=== PATIENT | female | born 1940 | race Caucasian/White ===

== ENCOUNTER → 2017-06-15 | Outpatient (CLI) | payer OTHER ==
[~2017-06-15] VITALS: Ht 172.7 cm; Wt 61.2 kg
[~2017-06-15] MED LIST: AMBIEN 5 MG TABL5 M1 PO; CARVEDILOL12.5 MG PO; CARVEDILOL3.125 MG PO; COREG6.25 MG PO; CREON 10 CAPSUL1 CA1 PO; CYMBALTA20 MG PO; FENTANYL PA12 MCG/HR TP; FLORINEF ACETA0.1 MG PO; GABAPENTIN100 MG PO; MIRALAX17 GM PO; TRAMADOL 50 MG50 MG PO; UNICOMPLEX M TA1 TA1 PO; VITAMIN D2000 UNIT PO; XANAX1 MG PO
--- NOTE | ~2017-06-15 | HPC ---
[facility] [address] PAIN MANAGEMENT CONSULTATION Name: JAVIER GRIFFIN Room #: REG KAREN Mary.#: [id number] Admission: 06/15/17 Attend Phys: Femi Ramirez MD Discharge: Date of : 40 Report #: [id number] THIS REPORT FOR: //name// CC: Randee Ramirez DATE OF SERVICE: 06/15/2017 DATE OF SERVICE: 06/15/2017 Followup visit for chronic intractable pain with multiple pain generators. The patient is to here today with her . She describes once again multiple aches and pains. She has back pain, wrist pain, bilateral elbow pain with arthritis. She has multiple myofascial pains and tenderness. I am providing her medication to ease these symptoms. She has had multiple trials of non opioid medications and currently we have settled on a regimen, which includes tramadol, Zoloft 50 mg at bedtime. She is not currently on a nonsteroidal anti-inflammatory drug and I have recommended Meloxicam 7.5 mg 1 tablet daily and Prilosec 20 mg daily. This will be new medication for her. Side effects of nonsteroidal anti-inflammatories reviewed in detail. PHYSICAL EXAMINATION: She is anxious, blood pressure 136/92, heart rate 87. She has multiple myofascial tender points. She has multiple joint tenderness consistent with osteoarthritis. She has range of motion related pain in wrist, elbows and shoulders. She has tenderness throughout spine with spondylosis. She has pain in her knees, ankles and hip. She claims her hands are swollen, but I do not see it. IMPRESSION: 1. Chronic intractable osteoarthritis and myofascial pain consistent with fibromyalgia. 2. Management of high risk medications. PLAN: 25 minutes counseling. Medications were written for polypharmacy treatments with review of side effects of each medication including Meloxicam, Zoloft and tramadol. Followup visit is planned. It should be noted that her dose of tramadol will be small and I feel that serotonin effects of the SSRI and tramadol would be reasonable, but we will follow closely. By: [id number] Femi Ramirez MD /nt
[2017-06-15 14:17] VITALS: BP 136/92
== END ==
LOC: PAIN 07:10
DX: M79.1 Myalgia (principal)

== ENCOUNTER → 2017-10-18 | Outpatient (CLI) | payer OTHER, BC ==
[~2017-10-18] VITALS: Ht 167.6 cm; Wt 61.5 kg
[~2017-10-18] MED LIST changes: +ALPRAZOLAM 0.50.5 M1 PO; +ELIQUIS5 MG PO; +HYDROCODONE-AP1 EAC6 PO; +MELATONIN5 M1 PO; +OMEPRAZOLE 20 M20 M1 PO; +SYNTHROID25 MC1 PO
--- NOTE | ~2017-10-18 | HPC ---
[facility] [address] [address] PAIN MANAGEMENT CONSULTATION Name: JAVIER GRIFFIN Room #: REG KAREN Albino#: [id number] Admission: 10/18/17 Attend Phys: Sarai Nelson MD Discharge: Date of : 40 Report #: [id number] THIS REPORT FOR: //name// CC: Randee Nelson DATE OF SERVICE: 10/18/2017 FOLLOWUP HISTORY: The patient is a 77-year-old female who has been seen by Dr. Femi Ramirez in the pain clinic for chronic pain. She states that she has pain secondary to lumbar radicular discomfort as well as fibromyalgia, which she has had for a number of years. She suffers from depression and anxiety. She indicates that Dr. Ramirez had changed her Ambien to Xanax. She feels that medication is helping with her sleep and has been somewhat helpful in decreasing her anxiety. She has had no complication with its use. She feels that her pain still is problematic. She feels that the change in her tramadol medication might be beneficial. She continues to have pain in her back. She states that she has some significant amount of curvature in her back and in the thoracic area as well. She continues to wear her elastic binder in the lower portion of her back. She would like to have her medications renewed today. ALLERGIES: PENICILLIN, SULFA, BACTRIM, CLARITHROMYCIN. CURRENT MEDICATIONS: Omeprazole 20 mg, Eliquis 5 mg, alprazolam 0.5 mg, tramadol 50 mg b.i.d., Coreg 12.5 mg, iron complex, Florinef 0.1 mg tablet, vitamin D, Creon capsule. PHYSICAL EXAMINATION: HEENT: Eye muscles intact. Nonicteric. Head, atraumatic. NECK: No JVD. Good range of motion. BACK: The patient has a binder in place. Note is made of some scoliosis. EXTREMITIES: The patient complains of some pain in her hands, has changes consistent with arthritis involving her fingers with some rheumatoid changes noted. MENTAL STATUS: The patient states that she feels somewhat depressed because of her chronic condition. Does not appear or speak to being suicidal. Her son is present. IMPRESSION: 1. Chronic intractable osteoarthritis and myofascial pain consistent with fibromyalgia. 2. Low back pain with curvature, scoliosis, neural foraminal narrowing and lumbar radiculopathy history, involving the L3-L4 distribution. 3. Management of high risk medications. [address] [address] PAIN MANAGEMENT CONSULTATION Name: JAVIER GRIFFIN Room #: REG CLI Albino#: [id number] Admission: 10/18/17 Attend Phys: Sarai Nelson MD Discharge: Date of : 40 Report #: [id number] RECOMMENDATION: 1. The patient felt that the change in her medications from Ambien to Xanax has been positive. She feels that this medication continues to be helpful. She would like to consider a change in her tramadol. At this juncture, we will let her follow up with Dr. Ramirez and they can decide what would be a reasonable option at that juncture in about one month. 2. Hypertension 3. Congestive heart failure -- atrial fibrillation. The patient continues to take Eliquis. States that she has been in fibrillation for about one month. Has not undergone cardioversion. She might consider that in the future. 4. Osteoporosis. 5. Obstructive sleep apnea. 6. Depression. We would like to thank you for letting us participate in her care. We hope she continues to improve. <ELECTRONICALLY SIGNED> By: Sarai Nelson MD 11/10/17 1332 [id number] [id number] Sarai Nelson MD /[facility]
[2017-10-18 10:49] VITALS: BP 134/89
== END ==
LOC: PAIN 07:00
DX: M48.061 Spinal stenosis, lumbar region without neurogenic claudication (principal); M54.16 Radiculopathy, lumbar region; M79.7 Fibromyalgia; F41.9 Anxiety disorder, unspecified; F32.9 Major depressive disorder, single episode, unspecified; M41.86 Other forms of scoliosis, lumbar region; Z79.899 Other long term (current) drug therapy

== ENCOUNTER → 2017-11-13 | Outpatient (CLI) | payer OTHER, BC ==
[~2017-11-13] VITALS: Ht 160 cm; Wt 63.0 kg
--- NOTE | ~2017-11-13 | CRIT ---
[facility] [place] [address] CRITICAL CARE NOTE Name: JAVIER GRIFFIN Room #: REG KAREN Hernandez.#: [id number] Admission: 11/13/17 Attend Phys: Femi Ramirez MD Discharge: Date of : 40 Report #: [id number] THIS REPORT FOR: //name// CC: Randee Ramirez DATE OF SERVICE: 11/13/[address] Steinberg. Followup visit for chronic osteoarthritis and myofascial pain. This is a followup visit for the patient who was last seen by my partner, Dr. Sebastián Nelson, 3 weeks ago. She is here today to discuss further suggestions. I spent roughly 25 minutes with her today discussing her pain, her medications, clarifying their use and dosing and offering additional suggestions for pain. She has previously been a patient of Dr. Gabo Alejandro. She is now with Dr. Steinberg. Some of the medications that were provided through Dr. Alejandro' office are no longer being provided by her new practitioner. I told her today, I would assist with medications that are involved with pain and affect. She has been a longstanding utilizer of sleeping aids as well as an anxiolytic. Her pain today is described diffusely as bilateral knees, low back, shoulders, ankle and hips. She has osteoarthritis. Her intensity is 8/10. The pain is aching and throbbing. It is generally worse on rising and is exacerbated by prolonged sitting. She also notices that walking aggravates her pain and this has made her more sedentary. She reports that her medication for the most part has been working pretty well, but the tramadol has lost some of its efficacy. She has taken in the past hydrocodone and is interested in transitioning or rotating to a mild low dose hydrocodone. We spent a great deal of time today discussing the dosing as she was confused about the Tylenol component. I think we clarified that her previous dose, which was effective was hydrocodone 5/325 and she will continue on that at today's discharge. Medicare PQRS review was performed. She does have a history of osteoarthritis as described above. Her BMI is 24.6 and she is not obese and eats adequately. PHYSICAL EXAMINATION: VITAL SIGNS: Blood pressure 136/91, heart rate 69. Pain intensity 8. She is not a fall risk and has not fallen in the last 3 months, but does feel that she gets dizzy when her blood pressure is elevated. She is on blood thinner, Eliquis, and is not a candidate for injection therapy today. She is only on tramadol, which has very mild opioid effects and we have not had her sign an [address] [place] [address] CRITICAL CARE NOTE Name: JAVIER GRIFFIN Mirna Room #: REG [facility] Albnio#: [id number] Admission: 11/13/17 Attend Phys: Femi Ramirez MD Discharge: Date of : 40 Report #: [id number] opioid agreement prior to today's visit. She does not smoke. Her risk assessment tool shows that she has a very low risk for addiction. Her affect is anxious and depressed. She has diffuse tenderness of multiple joints described above. She is able to move independently from a sitting to standing position and ambulate with mild antalgic features. IMPRESSION: 1. Chronic intractable osteoarthritis and myofascial pain. 2. Management of high risk medication. 3. Anxiety, depression. 4. History of insomnia. 5. Congestive heart failure with atrial fibrillation, on Coumadin. 6. Osteoporosis. PLAN: We will rotate the hydrocodone 5/325 three times daily, which is a total of 15 morphine milligram equivalents per day. An opioid agreement was signed and a baseline buccal drug screen performed. A followup visit is scheduled for her in 3 months. We will evaluate her opioid use at that time. I did agree to provide her with Xanax 0.5 mg, a very small dose that she has used chronically and should be safe with her small dose of hydrocodone. She has used them in conjunction previously. She will use this exclusively at night for sleep. <ELECTRONICALLY SIGNED> By: Femi Ramirez MD 12/06/17 1640 14 0218 Femi Ramirez MD /nt
[2017-11-13 12:54] VITALS: BP 136/91
== END ==
LOC: PAIN 07:04
DX: M19.072 Primary osteoarthritis, left ankle and foot (principal); M19.071 Primary osteoarthritis, right ankle and foot; M16.0 Bilateral primary osteoarthritis of hip; M19.012 Primary osteoarthritis, left shoulder; M19.011 Primary osteoarthritis, right shoulder; M17.0 Bilateral primary osteoarthritis of knee; M79.1 Myalgia; F41.9 Anxiety disorder, unspecified; F32.9 Major depressive disorder, single episode, unspecified; I50.9 Heart failure, unspecified; I48.91 Unspecified atrial fibrillation; M81.0 Age-related osteoporosis without current pathological fracture; Z79.01 Long term (current) use of anticoagulants; Z79.899 Other long term (current) drug therapy

== ENCOUNTER → 2018-04-30 | Outpatient (CLI) | payer OTHER, BC ==
[~2018-04-30] VITALS: Ht 160 cm; Wt 64.9 kg
--- NOTE | ~2018-04-30 | HPC ---
[facility] [address] [place] [address] PAIN MANAGEMENT CONSULTATION Name: JAVIER GRIFFIN Room #: REG KAREN Albino#: [id number] Admission: 04/30/18 Attend Phys: Femi Ramirez MD Discharge: Date of : 40 Report #: [id number] THIS REPORT FOR: //name// CC: Ashleybrittany Ramirez DATE OF SERVICE: 04/30/2018 Followup visit for management of chronic pain, osteoarthritis and myofascial pain. The patient returns to pain clinic today in followup. She has been a patient of our clinic now for several years. We provide her with a pain medication to improve day-to-day function. She reports that tramadol is more effective than her trial of hydrocodone. Her maximum daily use is two tablets twice a day for a total of 200 mg. She denies side effects. She is grateful for the pain relief and the improvement that it gives her day to day. She still has trouble sleeping, reports that she can only sleep about 2 hours at night. I had provided alprazolam for her in the past, which was the most helpful. She has tried other sleeping tablets including Belsomra, a long time use of Ambien, and she has tried melatonin high dose with limited success. I have agreed to provide her with alprazolam 0.5 mg to be used at bedtime. She has used this in combination with tramadol effectively without significant over sedation. Today, pain is once again in bilateral knees and hips. She has pain in her shoulders and also in her low back. Most of this is related to diffuse osteoarthritis. She describes it as a throbbing pain. It is worse with activities. She scores it as a 4 while sitting in our office today. PQRS shows that she does have a widespread history of osteoporosis. Her height is 5 feet 3 inches, weight 143 with a BMI of 25.3. She denies use of tobacco or alcohol. She has signed an opioid agreement for her use of pain medication, now just tramadol which we called in. She is not on hypertensive medication, but she does take a blood thinner Eliquis for atrial fibrillation. IMPRESSION: 1. Chronic osteoarthritis and myofascial pain. 2. Management of high risk medications. 3. History of anxiety, depression and insomnia. 4. Congestive heart failure with atrial fibrillation, now on Eliquis, off Coumadin. 5. Osteoporosis. [facility] [address] [place] [address] PAIN MANAGEMENT CONSULTATION Name: JAVIER GRIFFIN Room #: REG ANDRIAAdeline Posada#: [id number] Admission: 04/30/18 Attend Phys: Femi Ramirez MD Discharge: Date of : 40 Report #: [id number] PLAN: I renewed her tramadol 50 mg q.i.d. or 2 tablets b.i.d. and alprazolam 0.5 mg at bedtime. Followup visit planned in 3 months. <ELECTRONICALLY SIGNED> By: Femi Ramirez MD 05/02/18 1622 1223 [id number] Femi Ramirez MD /jan
[2018-04-30 10:31] VITALS: BP 116/74
== END ==
LOC: PAIN 06:25
DX: M19.90 Unspecified osteoarthritis, unspecified site (principal); M79.1 Myalgia; G89.29 Other chronic pain; M81.0 Age-related osteoporosis without current pathological fracture; I50.9 Heart failure, unspecified; I48.91 Unspecified atrial fibrillation; Z79.899 Other long term (current) drug therapy

== ENCOUNTER → 2018-10-05 | Outpatient (CLI) | payer OTHER, BC ==
[~2018-10-05] VITALS: Ht 160 cm; Wt 66.4 kg
[~2018-10-05] MED LIST changes: +ALPRAZOLAM 0.0.25 MG PO; +ASPERCREME 1141.7 GM TOP; +BIOTIN2500 MCG PO; +CALCIUM 600 +1 EAC8 PO; +GLUCOTEN CAPLE1 EACH PO; +HYDROCODON-ACE1 EAC7 PO; +IBUPROFEN 200200 M1 PO; +LASIX 40 MG TAB40 M2 PO; +MAGNESIUM500 MG PO; +NEPHROCAPS SOFT1 CAP PO; +NORCO 5-325 TA1 EACH PO; +OMEGA-31000 M1 PO; +STOOL SOFT-STI1 EACH PO; +VITAMIN C250 MG PO
[2018-10-05 13:10] VITALS: BP 120/79
--- NOTE | 2018-10-05 13:19 | NUR ---
Pain Clinic Assessment: 1. History of Osteoarthritis: YES History of Rheumatoid Arthritis: NONE 2. Height: 5 ft. 3 in. 160.0 cm. Weight: 146.4 lb. oz. 66.407 kg. Patient's BMI: 25.9 3. Vital Signs: BP: 120/79 Pulse: 73 Resp: 16 Temp: 02 Sat: 97 ECG Mon: 4. Pain Intensity: 6 5. Fall Risk: Dizziness: N Needs help standing or walking: N Fallen in the last 3 months: N Fall risk comments: 6. Patient on Blood Thinner: carla 7. History of Hypertension: N 8. Opioid Therapy greater than 6 weeks: N Opiate Contract Signed: 9. Risk Assessment Tool Provided: 0-low riak 10. Functional Assessment Tool: 11. Recreational Drug Use: Never Drug Type: Tobacco Use: Never Smoker Tobacco Type: Amount or Packs/day: How Many Years: Alcohol Use: No Frequency: Quant:
--- NOTE | 2018-10-10 11:18 | HPC ---
[facility] [place] [address] PAIN MANAGEMENT CONSULTATION Name: JAVIER GRIFFIN Room #: REG KAREN Albino#: [id number] Admission: 10/05/18 Attend Phys: Femi Ramirez MD Discharge: Date of : 40 Report #: [id number] THIS REPORT FOR: //name// CC: Ashley James DATE OF SERVICE: 10/05/2018 CHIEF COMPLAINT: Chronic pain, osteoarthritis and myofascial pain. The patient returns to pain clinic today for her ongoing chronic pain. She remains on medication, which she reports is quite helpful. She has no significant side effects. She safeguards her medication carefully under terms of written opioid agreement. She scores her pain as a 6/10. Pain is mostly in her low back and radiates into both legs in a dermatomal distribution. Today, we discussed the possibility of an epidural injection, which has been some years before she has trialed. She is comfortable with the tramadol that seems to help, but has trouble sleeping at night. She has used alprazolam in the past, but says the pharmacist makes her seem like a druggy. Pharmacist also forced her into getting a Narcan spray because of her use of tramadol and a small dose of alprazolam. She has used hydrocodone in the past, but seems to do just fine with the tramadol. She understands that she developed some tolerance to these medications. On episodes where the pain is more severe and she has trouble with daily activities, I have agreed to provide her with 1 hydrocodone 5/325 tablet that she can use as a somewhat breakthrough medication. She will carefully safeguard her medications. PQRS REVIEW: 1. The patient has a history of osteoarthritis involving hips and knees. She complains of pain in multiple joints. 2. BMI 25.3. 3. Vital signs: Blood pressure 116/74, heart rate 70. 4. Pain intensity 4/10. 5. She has not fallen and does not appear to be a fall risk. 6. She is on the blood thinner, Eliquis. 7. She is not treated for hypertension. 8. She is on an opioid agreement signed in our clinic on 11/13/2017. She is at low risk for addiction, particularly on tramadol, which has a very low MME as an opioid with additional effects on serotonin. 9. She denies use of tobacco or alcohol at this time. IMPRESSION: [facility] [address] [facility] [place] [address] PAIN MANAGEMENT CONSULTATION Name: JAVIER GRIFFIN Room #: REG CLI Albino#: [id number] Admission: 10/05/18 Attend Phys: Femi Ramirez MD Discharge: Date of : 40 Report #: [id number] 1. Chronic osteoarthritis and myofascial pain. 2. Management of high risk medications. 3. History of anxiety, depression, insomnia. 4. History of congestive heart failure, on Eliquis due to atrial fibrillation. 5. Osteoporosis. PLAN AND RECOMMENDATIONS: 1. I renewed her tramadol 50 mg 1 tablet 4 times daily. 2. Alprazolam dose reduced to 0.25 mg at bedtime. She has had no problems with dosing 1/2 tablet. We will provide this 0.25 dose because it is easy for her to handle and she does not have to cut them. 3. Hydrocodone 5/325 one tablet as needed for very severe pain. She was given just #30 tablets of these. 4. Continue with regular exercise. 5. Safeguard all medications. 6. Review of opioid agreement. <ELECTRONICALLY SIGNED> By: Femi Ramirez MD 10/10/18 1118 1707 1943 Femi Ramirez MD /nt
== END ==
LOC: PAIN 08:12
DX: G89.29 Other chronic pain (principal); M79.18 Myalgia, other site; M81.0 Age-related osteoporosis without current pathological fracture; Z86.79 Personal history of other diseases of the circulatory system; Z79.899 Other long term (current) drug therapy; Z86.59 Personal history of other mental and behavioral disorders

== ENCOUNTER → 2019-01-28 | Outpatient (CLI) | payer OTHER, BC ==
[~2019-01-28] VITALS: Ht 160 cm; Wt 64.6 kg
[~2019-01-28] MED LIST changes: +LASIX 20 MG TAB20 MG PO
[2019-01-28 13:00] VITALS: BP 125/82
--- NOTE | 2019-01-28 13:13 | NUR ---
Pain Clinic Assessment: 1. History of Osteoarthritis: YES History of Rheumatoid Arthritis: NONE 2. Height: 5 ft. 3 in. 160.0 cm. Weight: 142.4 lb. oz. 64.592 kg. Patient's BMI: 25.2 3. Vital Signs: BP: 125/82 Pulse: 71 Resp: 14 Temp: 02 Sat: 98 ECG Mon: 4. Pain Intensity: 6 5. Fall Risk: Dizziness: Y Needs help standing or walking: N Fallen in the last 3 months: N Fall risk comments: 6. Patient on Blood Thinner: paoloquis 7. History of Hypertension: N 8. Opioid Therapy greater than 6 weeks: N Opiate Contract Signed: 9. Risk Assessment Tool Provided: 0-low riak 10. Functional Assessment Tool: 11. Recreational Drug Use: Never Drug Type: Tobacco Use: Never Smoker Tobacco Type: Amount or Packs/day: How Many Years: Alcohol Use: No Frequency: Quant:
--- NOTE | 2019-01-28 13:13 | NUR ---
Document wound assessment on appropriate Wound Pressure, Monitor intervention!
--- NOTE | 2019-01-29 09:00 | HPC ---
[facility] [place] [address] PAIN MANAGEMENT CONSULTATION Name: JAVIER GRIFFIN Room #: REG KAREN Posada#: [id number] Admission: 01/28/19 ������������������ Attend Phys: Estee Pat Discharge: ������������������ Date of : 40 Report #: [id number] THIS REPORT FOR: //name// CC: Estee Parhambu Smith DATE OF SERVICE: 01/28/2019 CHIEF COMPLAINT: Chronic pain, osteoarthritis and myofascial pain. HISTORY OF PRESENT ILLNESS: This is a very pleasant 78-year-old female who returns to the pain clinic today for refill of her medications. She tells me that occasionally, the tramadol medication is not quite enough for her and she does require the hydrocodone tablet that Dr. Ramirez has provided her for her severe pain. The patient tells me that she continues to be as active as possible. She does do her stretching, exercises and yoga though she has been having more pain in her lower back and her hips. She feels this is arthritis that has been getting worse. Her pain score today is 6/10, mostly when she is walking and sitting but better if she uses her medications. She would like a refill of her pain pills today. ALLERGIES: PENICILLIN, SULFA, CLARITHROMYCIN and MILK. CURRENT MEDICATIONS: Tramadol 50 mg q.i.d. p.r.n., Lasix 20 mg daily, Senokot as needed, biotin as daily, vitamin C daily, vitamin B complex daily, glucosamine chondroitin, calcium daily, fish oil, Synthroid 25 mcg daily, hydrocodone 5/325 p.r.n., alprazolam 0.25 at bedtime, Eliquis 5 mg b.i.d., carvedilol 12.5 mg b.i.d. Florinef acetate 0.1 mg daily and Creon 10 mg t.i.d. PQRS: 1. She has a history of osteoarthritis involving her hips and knees and pain in other joints. She denies any rheumatoid arthritis. 2. Height is 5 feet 3 inches, weight is 142 and BMI is 25. 3. VITAL SIGNS: Blood pressure 125/82, pulse is 71, respirations 14 and oxygen sat is 98. 4. Pain score is 6/10. 5. Fall risk. Does complain of some dizziness, does not need help walking or standing, has not fallen in the last 3 months. 6. The patient is on Eliquis for blood thinner and she does take medicines for hypertension. 7. Opioid therapy is greater than 6 weeks; therefore, an opioid signed contract will be placed on the chart for her to sign. 8. Risk assessment tool is low. Functional assessment is 16. 9. Recreational drug use, she denies. She denies smoking or alcohol use. IMPRESSION: [facility] [address] [place] [address] PAIN MANAGEMENT CONSULTATION Name: JAVIER GRIFFIN Room #: REG KAREN Posada#: [id number] Admission: 01/28/19 ������������������ Attend Phys: Estee Pat Discharge: ������������������ Date of : 40 Report #: [id number] 1. Chronic osteoarthritis and myofascial pain. 2. Management of high risk medications. 3. History of anxiety, depression and insomnia. 4. History of congestive heart failure, on Eliquis due to atrial fibrillation. 5. Osteoporosis. We did check the prescription monitoring system. The patient is filling appropriately for medications in which we prescribed. She tells me that she does safeguard her medications. PHYSICAL EXAMINATION: GENERAL: This is a well-developed, well-nourished 78-year-old female who appears her stated age. Placing her current pain score today at 6/10. HEENT: Normocephalic and atraumatic. Extraocular eye muscles are intact. Mucous membranes are moist. NECK: Without JVD or adenopathy. MUSCULOSKELETAL: The patient has significant scoliosis. Complains of tenderness in her lower back and her bilateral hips and knees today. The patient does walk with an antalgic gait. Her lower extremity strength judged to be 5/5 for all major muscle groups. We reviewed the fact that opiate medications are being used to provide analgesia adequate to support activities of daily living, not attempting to achieve a specific pain score on the 0-10 Visual Analog Scale. The current opiate medications are providing sufficient analgesia to allow the patient to participate in activities of daily living. The patient is not exhibiting any aberrant behavior suggestive of drug diversion. The patient is not having any adverse reactions to medications. The patient is not suffering from daytime somnolence or mental acuity changes. The patient is managing opiate-induced constipation with appropriate jyop-ruv-qpzzzls agents and dietary considerations. The patient was counseled on concern for caution with operating a motor vehicle while using opiate medications. A physical exam was performed and the patient's functional status was evaluated. All patients with back pain were advised against the bed rest greater than 4 days and were advised to return to normal activities. Pain score assessment was noted and the treatment plan was reviewed with the patient. All current medications, both prescribed and OTC were reviewed and reconciled on the electronic medical record. Tobacco screening was accomplished and smoking cessation was advised when indicated. BMI was noted and diet/exercise modification was recommended for all patients following outside normal parameters. I reviewed with the patient today their responsibilities to safeguard prescription medications, reviewed their responsibility to utilize medications only as prescribed by the physician. They are to seek and receive pain [facility] [address] [address] PAIN MANAGEMENT CONSULTATION Name: JAVIER GRIFFIN Room #: REG KAREN Posada#: [id number] Admission: 01/28/19 ������������������ Attend Phys: Estee Pat Discharge: ������������������ Date of : 40 Report #: [id number] medications only from 1 physician group ( [facility]). They are to use 1 pharmacy and keep the clinic informed if they change pharmacies. Their responsibilities include making followup visits in a timely fashion and to avoid abrupt discontinuation of medication usage. Their responsibilities further include bringing their medications (bottles from the pharmacy with residual pills) to the visit for possible confirmation of pill counts and the patient understands it is their responsibility to submit to random drug screens to ensure both that the medications prescribed are present, and that no other controlled substances are present. All prescriptions provided today were generated electronically. PLAN: 1. We discussed treatment options with the patient today. We refill her tramadol. The patient instructed to take one tablet 4 times a day or if she needs to, she can take 2 tablets twice a day, #120 given with 2 additional refills. 2. Hydrocodone 5/325 one p.o. b.i.d., #30 p.r.n. The patient to use this sparingly only for severe pain. If she is going to be very active, work in her yard or walk a long distance, she was encouraged to take this medication. 3. Xanax 0.25 mg 1 tablet at bedtime, #30 with two additional refill, was given for the patient for her sleeping. 4. The patient instructed to call for an appointment as she needs to for refill of her medications. 5. The patient seen with Dr. Femi Ramirez who collaborated care. ��������������������������������������������� <ELECTRONICALLY SIGNED> ���������������������������������������� By: Estee Pat ��������������������������������������������� 01/29/19 0900 [id number] Estee Pat /nt
== END ==
LOC: PAIN 07:12
DX: G89.29 Other chronic pain (principal); M17.0 Bilateral primary osteoarthritis of knee; M16.0 Bilateral primary osteoarthritis of hip; F41.9 Anxiety disorder, unspecified; F32.9 Major depressive disorder, single episode, unspecified; I48.91 Unspecified atrial fibrillation; I11.0 Hypertensive heart disease with heart failure; I50.9 Heart failure, unspecified; Z88.0 Allergy status to penicillin; Z88.2 Allergy status to sulfonamides; Z88.1 Allergy status to other antibiotic agents; Z91.011 Allergy to milk products; Z79.899 Other long term (current) drug therapy; Z79.891 Long term (current) use of opiate analgesic; M85.80 Other specified disorders of bone density and structure, unspecified site; Z79.01 Long term (current) use of anticoagulants

== ENCOUNTER → 2019-05-17 | Outpatient (CLI) | payer OTHER, BC ==
[~2019-05-17] VITALS: Ht 160 cm; Wt 60.8 kg
[~2019-05-17] MED LIST changes: +CIPRO500 MG PO; +DIGOXIN125 MCG PO
[2019-05-17 10:00] VITALS: BP 110/75
--- NOTE | 2019-05-17 10:09 | NUR ---
Pain Clinic Assessment: 1. History of Osteoarthritis: YES History of Rheumatoid Arthritis: NONE 2. Height: 5 ft. 3 in. 160.0 cm. Weight: 134.0 lb. oz. 60.782 kg. Patient's BMI: 23.7 3. Vital Signs: BP: 110/75 Pulse: 86 Resp: 16 Temp: 02 Sat: 97 ECG Mon: 4. Pain Intensity: 7 5. Fall Risk: Dizziness: N Needs help standing or walking: Y Fallen in the last 3 months: N Fall risk comments: 6. Patient on Blood Thinner: palooquis 7. History of Hypertension: N 8. Opioid Therapy greater than 6 weeks: N Opiate Contract Signed: 9. Risk Assessment Tool Provided: 0-low riak 10. Functional Assessment Tool: 11. Recreational Drug Use: Never Drug Type: Tobacco Use: Never Smoker Tobacco Type: Amount or Packs/day: How Many Years: Alcohol Use: No Frequency: Quant:
--- NOTE | 2019-05-17 10:09 | NUR ---
Pain Clinic Assessment: 1. History of Osteoarthritis: YES History of Rheumatoid Arthritis: NONE 2. Height: 5 ft. 3 in. 160.0 cm. Weight: 134.0 lb. oz. 60.782 kg. Patient's BMI: 23.7 3. Vital Signs: BP: 110/75 Pulse: 86 Resp: 16 Temp: 02 Sat: 97 ECG Mon: 4. Pain Intensity: 7 5. Fall Risk: Dizziness: N Needs help standing or walking: Y Fallen in the last 3 months: N Fall risk comments: 6. Patient on Blood Thinner: paoloquis 7. History of Hypertension: N 8. Opioid Therapy greater than 6 weeks: N Opiate Contract Signed: 9. Risk Assessment Tool Provided: 0-low riak 10. Functional Assessment Tool: 11. Recreational Drug Use: Never Drug Type: Tobacco Use: Never Smoker Tobacco Type: Amount or Packs/day: How Many Years: Alcohol Use: No Frequency: Quant:
--- NOTE | 2019-05-20 11:26 | HPC ---
[facility] [address] [address] PAIN MANAGEMENT CONSULTATION Name: JAVIER GRIFFIN Room #: REG [facility]#: [id number] Admission: 05/17/19 Attend Phys: Estee Pat Discharge: Date of : 40 Report #: [id number] THIS REPORT FOR: //name// CC: Estee Parhambu Smith DATE OF SERVICE: 05/17/2019 CHIEF COMPLAINT: Chronic back pain, osteoarthritis and myofascial pain. HISTORY OF PRESENT ILLNESS: This is a pleasant 78-year-old female who returned to the pain clinic with her son today. She tells us that her pain score is a 7/10 because she has been out of her tramadol. For a few days, she also complains that she has been out of Xanax and has not been sleeping as well. When we looked back at her records, she has not been here for 4 months. Therefore, she is due for her medication refills and now she understands why she is out of her medications. She does report her pain score is 7/10, mostly in her low back and her bilateral legs. It is worse when she does any activity and standing and walking, but better when she is taking her medications. She denies any problems with constipation as long as she takes an drbe-our-eccjeuv stool softener and denies any daytime sleepiness. The patient tells me that she has a urinary tract infection currently. She is on Cipro for this. She is seeing a new doctor, Dr. Conner who may become her primary care doctor. She does have an appointment on Monday with this physician again. ALLERGIES: PENICILLIN, SULFA, CLARITHROMYCIN and MILK. CURRENT LIST OF MEDICATIONS: Digoxin 0.125 mg a day, Cipro 500 mg b.i.d., tramadol 50 mg 1 q.6 hours p.r.n., hydrocodone 5/325 p.r.n., Xanax 0.25 at bedtime, Lasix, Senokot, biotin, vitamin C, Nephrocaps, magnesium, glucosamine chondroitin, calcium, omega 3, ibuprofen, Synthroid, omeprazole, Eliquis 5 mg b.i.d., carvedilol 12.5 mg b.i.d., multivitamin, Florinef, vitamin D, and Creon. PQRS: 1. She has a history of osteoarthritis involving her hips, knees and hands. She denies any rheumatoid arthritis. 2. Height is 5 feet 3 inches, weight is 134, BMI is 23. 3. VITAL SIGNS: Blood pressure 117/75, pulse is 86, respirations 16, oxygen sat is 97. 4. Pain score is 7/10. 5. Denies dizziness. Does need help walking, has a walker and has not fallen in the last 3 months. 6. The patient is on blood thinner, Eliquis and does take medicine for hypertension. [address] [address] PAIN MANAGEMENT CONSULTATION Name: JAVIER GRIFFIN Room #: REG KAREN Posada#: [id number] Admission: 05/17/19 Attend Phys: Estee Pat Discharge: Date of : 40 Report #: [id number] 7. Opioid therapy is greater than 6 months, therefore an opioid agreement is on the chart. Risk assessment tool is low. Functional assessment is 16/70. 8. Recreational drug use, she denies. She is not a smoker and does not drink alcohol. According to the prescription monitoring system, the patient is filling appropriately for her medications. She is out of her medications today, but that is since her last fills were greater than 30 days in the past. PHYSICAL EXAMINATION: GENERAL: This is a well-developed, well-nourished 78-year-old female who is alert and orientated most of the time, though at times she is slightly confused in her thought process. Her pain score today is 7/10. HEENT: Normocephalic, atraumatic. Extraocular eye muscles are intact. Mucous membranes are moist. NECK: Without JVD or adenopathy. MUSCULOSKELETAL: The patient has significant scoliosis. She has tenderness across her lower back that radiates into her bilateral legs today. She walks with an antalgic gait. Her lower extremity strength judged to be 5/5 in all major muscle groups. We reviewed the fact that opiate medications are being used to provide analgesia adequate to support activities of daily living, not attempting to achieve a specific pain score on the 0-10 Visual Analog Scale. The current opiate medications are providing sufficient analgesia to allow the patient to participate in activities of daily living. The patient is not exhibiting any aberrant behavior suggestive of drug diversion. The patient is not having any adverse reactions to medications. The patient is not suffering from daytime somnolence or mental acuity changes. The patient is managing opiate-induced constipation with appropriate apvf-xuj-aggczrh agents and dietary considerations. The patient was counseled on concern for caution with operating a motor vehicle while using opiate medications. A physical exam was performed and the patient's functional status was evaluated. All patients with back pain were advised against the bed rest greater than 4 days and were advised to return to normal activities. Pain score assessment was noted and the treatment plan was reviewed with the patient. All current medications, both prescribed and OTC were reviewed and reconciled on the electronic medical record. Tobacco screening was accomplished and smoking cessation was advised when indicated. BMI was noted and diet/exercise modification was recommended for all patients following outside normal parameters. I reviewed with the patient today their responsibilities to safeguard prescription medications, reviewed their responsibility to utilize medications only as prescribed by the physician. They are to seek and receive pain [facility] [address] [place] [address] PAIN MANAGEMENT CONSULTATION Name: JAVIER GRIFFIN Room #: REG KAREN Posada#: [id number] Admission: 05/17/19 Attend Phys: Estee Pat Discharge: Date of : 40 Report #: [id number] medications only from 1 physician group ( [facility]). They are to use 1 pharmacy and keep the clinic informed if they change pharmacies. Their responsibilities include making followup visits in a timely fashion and to avoid abrupt discontinuation of medication usage. Their responsibilities further include bringing their medications (bottles from the pharmacy with residual pills) to the visit for possible confirmation of pill counts and the patient understands it is their responsibility to submit to random drug screens to ensure both that the medications prescribed are present, and that no other controlled substances are present. All prescriptions provided today were generated electronically. PLAN: 1. We discussed treatment options with the patient today. The patient tells me her medications are very beneficial. Sometimes she would like to have more tramadol than she does get per month, but does understand the need to have the lowest most effective dose. She finds that hydrocodone very beneficial, especially when she is vacuuming. We did discuss vacuuming with walking with the vacuum. We did discuss switching this walking back and forth with the vacuum and not jerking her arm back and forth when she vacuums to help decrease some of her back pain. The patient verbalizes understanding. She said she had never thought about that that would hopefully help her. 2. Scripts given today for tramadol 50 mg, #120 with 2 additional refills, hydrocodone that she uses very sparingly 5/325, #30 and her Xanax 0.25 at bedtime, #30 with 2 additional refills. The patient encouraged to take that on an as needed basis, not routinely every night. 3. The patient is seen in collaboration today with Dr.Wayne Nelson. The patient will return in 3 months for followup. <ELECTRONICALLY SIGNED> By: Estee Pat 05/20/19 1126 [id number] Estee Pat /nt
== END ==
LOC: PAIN 06:46
DX: M54.9 Dorsalgia, unspecified (principal); M19.90 Unspecified osteoarthritis, unspecified site; M79.18 Myalgia, other site; Z88.0 Allergy status to penicillin; Z88.2 Allergy status to sulfonamides; Z88.8 Allergy status to other drugs, medicaments and biological substances; Z79.899 Other long term (current) drug therapy

== ENCOUNTER → 2019-08-05 | Outpatient (CLI) | payer OTHER, BC ==
[~2019-08-05] VITALS: Ht 160 cm; Wt 60.8 kg
[2019-08-05 12:27] VITALS: BP 128/78
--- NOTE | 2019-08-05 12:36 | NUR ---
Pain Clinic Assessment: 1. History of Osteoarthritis: ANKLES KNEES HIPS SPINE FINGERS History of Rheumatoid Arthritis: NONE 2. Height: 5 ft. 3 in. 160.0 cm. Weight: 134.0 lb. oz. 60.782 kg. Patient's BMI: 23.7 3. Vital Signs: BP: 128/78 Pulse: 86 Resp: 14 Temp: 02 Sat: 97 ECG Mon: 4. Pain Intensity: 6 5. Fall Risk: Dizziness: N Needs help standing or walking: N Fallen in the last 3 months: N Fall risk comments: 6. Patient on Blood Thinner: BALA 7. History of Hypertension: N 8. Opioid Therapy greater than 6 weeks: N Opiate Contract Signed: 9. Risk Assessment Tool Provided: 0-low riak 10. Functional Assessment Tool: 11. Recreational Drug Use: Never Drug Type: Tobacco Use: Never Smoker Tobacco Type: Amount or Packs/day: How Many Years: Alcohol Use: No Frequency: Quant:
--- NOTE | 2019-08-07 14:46 | HPC ---
[facility] [address] [place] [address] PAIN MANAGEMENT CONSULTATION Name: JAVIER GRIFFIN Room #: REG KAREN Posada#: [id number] Admission: 08/05/19 Attend Phys: Estee Pat Discharge: Date of : 40 Report #: [id number] THIS REPORT FOR: //name// CC: Estee Pat Dalila Steven CHIEF COMPLAINT: Chronic back pain, osteoarthritis and myofascial pain. HISTORY OF PRESENT ILLNESS: This is a very pleasant 78-year-old female who returns to the pain clinic today for refill of her medication. She is rating her pain score at 6/10 today, mostly located in her low back and bilateral legs, but she states she has a new pain in the muscles around her neck. This is worse early in the morning. Her pain score is a 6/10 today, mostly exacerbated by walking, but she feels that her medications are beneficial, though not as much as they have been in the past and wondering if she is able to have a slight increase or what other options she has for pain control. ALLERGIES: PENICILLIN, SULFA, CLARITHROMYCIN. CURRENT LIST OF MEDICATIONS: Tramadol 50 mg 4 times a day, hydrocodone p.r.n., alprazolam 0.25 mg p.r.n. at bedtime, Lanoxin 0.125 mcg daily, Lasix 20 mg daily, Senokot, biotin, vitamin C, folic acid, magnesium, glucosamine-chondroitin, calcium, omega-3, Synthroid 50 mcg per day, omeprazole 20 mg daily, Eliquis 5 mg b.i.d., carvedilol 12.5 mg b.i.d., multivitamin, Florinef acetate 0.1 mg daily, and Creon 10 mg capsules 3 times a day. PQRS: 1. She has a history of osteoarthritis involving her hips, knees, hands and spine. Denies any rheumatoid arthritis. 2. Height is 5 feet 3 inches, weight is 134, BMI is 23. 3. Vital signs 128/78, pulse is 86, respirations 14, oxygen sat is 97. 4. Pain score is 6/10. 5. Denies dizziness. Does not need help walking or standing, has not fallen in the last 3 months. 6. The patient is on Eliquis, does take medicine for hypertension. 7. Opioid therapy is greater than 6 weeks; therefore, an opioid signed contract is on the chart. We will place one in the chart. 8. Risk assessment tool is low. Functional assessment is 1670. 9. Recreational drug use, she denies. She is not a smoker and does not drink alcohol. According to the prescription monitoring system, the patient is filling appropriately for her medications. She is on time for those to be filled today, slightly early for her tramadol. PHYSICAL EXAMINATION: GENERAL: This is a well-developed, well-nourished 78-year-[place] [address] PAIN MANAGEMENT CONSULTATION Name: JAVIER GRIFFIN Mirna Room #: REG KAREN Posada#: [id number] Admission: 08/05/19 Attend Phys: Estee Pat Discharge: Date of : 40 Report #: [id number] appears her stated age, placing her current pain score at 6/10 today. HEENT: Normocephalic, atraumatic. Extraocular eye muscles are intact. Mucous membranes are moist. NECK: Complains of myofascial pain on the lateral aspects of her spinal processes, tender to the touch with no radiculopathy into her arms. MUSCULOSKELETAL: The patient has significant scoliosis. Has tenderness across her lumbar spine that radiates into her bilateral legs. She does walk with a slightly antalgic gait. She has 1+ edema in her lower extremities. Wearing compression hose today. Lower extremity strength judged to be 5/5 in all major muscle groups. We reviewed the fact that opiate medications are being used to provide analgesia adequate to support activities of daily living, not attempting to achieve a specific pain score on the 0-10 Visual Analog Scale. The current opiate medications are providing sufficient analgesia to allow the patient to participate in activities of daily living. The patient is not exhibiting any aberrant behavior suggestive of drug diversion. The patient is not having any adverse reactions to medications. The patient is not suffering from daytime somnolence or mental acuity changes. The patient is managing opiate-induced constipation with appropriate ozok-dlt-isxlgei agents and dietary considerations. The patient was counseled on concern for caution with operating a motor vehicle while using opiate medications. A physical exam was performed and the patient's functional status was evaluated. All patients with back pain were advised against the bed rest greater than 4 days and were advised to return to normal activities. Pain score assessment was noted and the treatment plan was reviewed with the patient. All current medications, both prescribed and OTC were reviewed and reconciled on the electronic medical record. Tobacco screening was accomplished and smoking cessation was advised when indicated. BMI was noted and diet/exercise modification was recommended for all patients following outside normal parameters. I reviewed with the patient today their responsibilities to safeguard prescription medications, reviewed their responsibility to utilize medications only as prescribed by the physician. They are to seek and receive pain medications only from 1 physician group ( [facility]). They are to use 1 pharmacy and keep the clinic informed if they change pharmacies. Their responsibilities include making followup visits in a timely fashion and to avoid abrupt discontinuation of medication usage. Their responsibilities further include bringing their medications (bottles from the pharmacy with residual pills) to the visit for possible confirmation of pill counts and the patient understands it is their responsibility to submit to random drug screens to ensure both that the medications prescribed are present, and that no other controlled substances are present. All prescriptions provided today were generated electronically. [address] [address] PAIN MANAGEMENT CONSULTATION Name: JAVIER GRIFFIN Mirna Room #: REG CLAdeline Posada#: [id number] Admission: 08/05/19 Attend Phys: Estee Pat Discharge: Date of : 40 Report #: [id number] PLAN: 1. We discussed treatment options with the patient today. The patient feels that her tramadol is not as beneficial as it had been in the past. She has currently been taking two at a time up to 6 pills some days, but continues to use her hydrocodone very sparingly. We encouraged her to resume her one Tramadol up to 4 times a day, only taking 4 pills at a time, and to use her hydrocodone as needed, possibly even splitting those taking 1/2 every day at bedtime when she is having additional pain. The patient verbalizes understanding of this. 2. Scripts given for tramadol 50 mg, #120 with 2 additional refills; hydrocodone 5/325 b.i.d., #30 with no additional refills; Xanax 0.25 mg, #30 with 2 additional refills. The patient takes this very sparingly at bedtime. She does know the risk of taking opioids and alprazolam together, has been taking this medication for several years and has done quite well with them. 3. I encouraged the patient to use heat or ice to her myofascial pain in her neck, encouraging 15 minutes on and off for the rest of the hour. The patient will try to do this to see if that will help her neck discomfort. 4. Dr. Femi Ramirez did see the patient as well today and collaborated care. The patient will return in 3 months. 5. The patient's current morphine milliequivalent per day is 25. <ELECTRONICALLY SIGNED> By: Estee Pat 08/07/19 1446 1429 0147 Estee Pat /nt
== END ==
LOC: PAIN 05-23 11:01
DX: M54.5 Low back pain (principal); M19.90 Unspecified osteoarthritis, unspecified site; G89.29 Other chronic pain; Z88.2 Allergy status to sulfonamides; Z88.0 Allergy status to penicillin; Z88.1 Allergy status to other antibiotic agents; Z79.899 Other long term (current) drug therapy

== ENCOUNTER → 2019-10-17 | Outpatient (CLI) | payer OTHER, BC ==
[~2019-10-17] VITALS: Ht 160 cm; Wt 59.8 kg
[~2019-10-17] MED LIST changes: +SYNTHROID75 MCG PO
[2019-10-17 13:09] VITALS: BP 130/69
--- NOTE | 2019-10-17 13:28 | NUR ---
Pain Clinic Assessment: 1. History of Osteoarthritis: ANKLES KNEES HIPS SPINE FINGERS History of Rheumatoid Arthritis: NONE 2. Height: 5 ft. 3 in. 160.0 cm. Weight: 131.8 lb. oz. 59.784 kg. Patient's BMI: 23.4 3. Vital Signs: BP: 130/69 Pulse: 77 Resp: 14 Temp: 02 Sat: 97 ECG Mon: 4. Pain Intensity: 7 5. Fall Risk: Dizziness: N Needs help standing or walking: N Fallen in the last 3 months: N Fall risk comments: 6. Patient on Blood Thinner: BALA 7. History of Hypertension: N 8. Opioid Therapy greater than 6 weeks: N Opiate Contract Signed: 9. Risk Assessment Tool Provided: 0-low riak 10. Functional Assessment Tool: 11. Recreational Drug Use: Never Drug Type: Tobacco Use: Never Smoker Tobacco Type: Amount or Packs/day: How Many Years: Alcohol Use: No Frequency: Quant:
--- NOTE | 2019-10-21 07:53 | HPC ---
[facility] [address] [place] [address] PAIN MANAGEMENT CONSULTATION Name: JAVIER GRIFFIN Room #: REG KAREN Albino#: [id number] Admission: 10/17/19 Attend Phys: Estee Pat Discharge: Date of : 40 Report #: [id number] THIS REPORT FOR: //name// CC: Estee Wilhelm MD DATE OF SERVICE: 10/17/2019 CHIEF COMPLAINT: Chronic back pain, osteoarthritis and myofascial pain. HISTORY OF PRESENT ILLNESS: This is a very pleasant 79-year-old female who returns to the pain clinic today with her son to discuss her medication management for refills. She is reporting a pain score of 7/10 today. Most of her pain is located in her lumbar spine that does radiate down her bilateral legs, but she reports a new pain in her neck. She feels that it is tender to the touch and does have pain with movement. She feels that her bed has been causing her to have this neck issues. Her pain is an achy, constant feeling, worse with any activity. She feels that the medication that we prescribe for her are beneficial. Per our last visit, we discussed compression hose for the patient. She was having some lower extremity edema. She does have cardiac issues as well. The patient reports that she did seek out some compression hose that we discussed and has been wearing those and she feels that they are quite beneficial. ALLERGIES: PENICILLIN, SULFA, CLARITHROMYCIN. CURRENT LIST OF MEDICATIONS: Tramadol 50 mg p.r.n., hydrocodone 5/325 b.i.d. p.r.n., alprazolam 0.25 at bedtime, digoxin, Lasix, stool softeners, biotin, vitamin C, Nephrocaps, magnesium, glucosamine chondroitin, calcium, omega 3, Synthroid, omeprazole, Eliquis, carvedilol, multivitamin, vitamin D, and Creon. PQRS: 1. She has a history of arthritic changes in her knees, hips, hands and spine. Denies any rheumatoid arthritis. 2. Height is 5 feet 3 inches, weight is 131, BMI is 23. 3. Vital signs 130/69, pulse is 77, respirations 14, oxygen sat is 97. 4. Pain score is 7/10. 5. Denies dizziness, does not need help walking or standing, has not fallen in the last 3 months. 6. The patient is on Eliquis, does not take medicine for hypertension. 7. Opioid therapy is greater than 6 weeks and opioid signed contract is on the chart. Risk assessment tool is low. Functional assessment is 1670. 8. Recreational drug use, she denies. She is not a [place] [id number] PAIN MANAGEMENT CONSULTATION Name: JAVIER GRIFFIN Room #: REG KAREN Posada#: [id number] Admission: 10/17/19 Attend Phys: Estee Pat Discharge: Date of : 40 Report #: [id number] alcohol. According to the prescription monitoring system, the patient is due to fill her tramadol today as well as her hydrocodone that she does take very sparingly. According to the CDC guidelines, her morphine mEq per day is 20-25 depending on her dose. She does take alprazolam at bedtime and has been told about the interactions of the benzodiazepine and opioid, but does take these very cautiously and has been stable on these meds for several years. PHYSICAL EXAMINATION: GENERAL: This is a well-developed, well-nourished, soft spoken, 79-year-old, who appears her stated age, placing her current pain score at 7/10 today. HEENT: Normocephalic, atraumatic. Extraocular eye muscles are intact. Mucous membranes are moist. NECK: Complains of some myofascial pain on the left side of her neck. This increases with range of motion to side to side tilt. No radicular symptoms noted. MUSCULOSKELETAL: The patient has significant scoliosis. She has tenderness across the lumbar paraspinal musculatures. It does radiate also into her bilateral legs. She walks with a slightly antalgic gait. Lower extremity strength judged to be 5/5 in all major muscle groups. She is wearing compression hose today. We reviewed the fact that opiate medications are being used to provide analgesia adequate to support activities of daily living, not attempting to achieve a specific pain score on the 0-10 Visual Analog Scale. The current opiate medications are providing sufficient analgesia to allow the patient to participate in activities of daily living. The patient is not exhibiting any aberrant behavior suggestive of drug diversion. The patient is not having any adverse reactions to medications. The patient is not suffering from daytime somnolence or mental acuity changes. The patient is managing opiate-induced constipation with appropriate dall-gui-sowymep agents and dietary considerations. The patient was counseled on concern for caution with operating a motor vehicle while using opiate medications. ASSESSMENT: 1. Chronic osteoarthritis. 2. Myofascial pain. 3. History of anxiety and depression. 4. History of congestive heart failure, on Eliquis due to atrial fibrillation. 5. Osteoporosis. 6. Management of high risk medications under terms of written opioid agreement. PLAN: 1. We discussed treatment options with the patient today. The patient finds her medications very beneficial in controlling most of her pain. She has had [facility] [address] [place] [address] PAIN MANAGEMENT CONSULTATION Name: JAVIER GRIFFIN Room #: REG KAREN Posada#: [id number] Admission: 10/17/19 Attend Phys: Estee Pat Discharge: Date of : 40 Report #: [id number] some increased neck pain. We discussed changing her pillows, also elevating her bed and I have given her neck and back exercises for her to attempt at home. I encouraged her not to overdo these exercises to go slowly and see if they are beneficial in decreasing some of her neck pain. 2. We will e-prescribe refills of her tramadol 50 mg 4 times a day with 2 additional refills, hydrocodone 5/325, #30. She takes this very sparingly and alprazolam 0.25 mg 1 at bedtime, #30 with [address] Femi Ramirez will send these to her [facility]. 3. The patient is seen today in collaboration with Dr. Femi Ramirez. She will call for an appointment to be seen in 3-4 months as needed. <ELECTRONICALLY SIGNED> By: Estee Pat 10/21/19 0753 1420 2334 Estee Pat /nt
== END ==
LOC: PAIN 06:46
DX: M79.18 Myalgia, other site (principal); M54.5 Low back pain; G89.29 Other chronic pain; M19.90 Unspecified osteoarthritis, unspecified site; F32.9 Major depressive disorder, single episode, unspecified; F41.9 Anxiety disorder, unspecified; I50.9 Heart failure, unspecified; I48.91 Unspecified atrial fibrillation; M81.0 Age-related osteoporosis without current pathological fracture; Z88.0 Allergy status to penicillin; Z88.2 Allergy status to sulfonamides; Z88.1 Allergy status to other antibiotic agents; Z79.899 Other long term (current) drug therapy

== ENCOUNTER → 2019-12-23 | Outpatient (CLI) | payer OTHER, BC ==
[~2019-12-23] VITALS: Ht 160 cm; Wt 60.4 kg
[2019-12-23 15:07] VITALS: BP 153/90
--- NOTE | 2019-12-23 15:11 | NUR ---
Pain Clinic Assessment: 1. History of Osteoarthritis: ANKLES KNEES HIPS SPINE FINGERS History of Rheumatoid Arthritis: NONE 2. Height: 5 ft. 3 in. 160.0 cm. Weight: 133.2 lb. oz. 60.419 kg. Patient's BMI: 23.6 3. Vital Signs: BP: 153/90 Pulse: 84 Resp: 18 Temp: 02 Sat: 97 ECG Mon: 4. Pain Intensity: 8 5. Fall Risk: Dizziness: N Needs help standing or walking: N Fallen in the last 3 months: N Fall risk comments: 6. Patient on Blood Thinner: CHARITOIS 7. History of Hypertension: N 8. Opioid Therapy greater than 6 weeks: N Opiate Contract Signed: 9. Risk Assessment Tool Provided: 0-low riak 10. Functional Assessment Tool: 11. Recreational Drug Use: Never Drug Type: Tobacco Use: Never Smoker Tobacco Type: Amount or Packs/day: How Many Years: Alcohol Use: No Frequency: Quant:
--- NOTE | 2019-12-24 09:07 | HPC ---
[facility] [address] [address] PAIN MANAGEMENT CONSULTATION Name: JAVIER GRIFFIN Room #: REG KAREN Posada#: [id number] Admission: 12/23/19 Attend Phys: Estee Pat Discharge: Date of : 40 Report #: [id number] THIS REPORT FOR: cc: Dalila Harris Pamela D. DO Hocker,Estee IYER ~ DATE OF SERVICE: 12/23/2019 CHIEF COMPLAINT: Chronic back pain, osteoarthritis and myofascial pain. HISTORY OF PRESENT ILLNESS: This is a very pleasant 79-year-old female who returns to the pain clinic today for refill of her medications. She is quite anxious and that has increased her pain today. She has had difficulty arriving at our clinic due to some car issues; therefore, her pain score is quite elevated at 8/10 today. I encouraged the patient to take some deep breaths and relax if she made it to her appointment and all is well. The patient says that she does not like to be late, gets her all nervous. Today, she is rating her pain at 8. Again, most of it is anxiety. She feels that the weather changes have played a part in her increased pain as well with her arthritis in her joints. She continues to have low back pain that does not radiate into her legs today. Her pain is worse with walking, but finds the tramadol and occasional hydrocodone very beneficial in controlling her pain. She states that some days she is able to take less medication when the weather is nice. She denies any problems with constipation or daytime sleepiness. The patient is wondering if she is able to decrease some of her Xanax. She feels that the [facility] gives her a difficult time when she tries to fill her medications there and makes her feel like she is "a drug person." She uses her alprazolam to help her sleep at night. ALLERGIES: PENICILLIN, SULFA, CLARITHROMYCIN. CURRENT LIST OF MEDICATIONS: Tramadol 50 mg q.i.d. p.r.n., hydrocodone 5/325 sparingly, alprazolam 0.25 at bedtime, digoxin, Lasix, Senokot, biotin, vitamin C, Nephrocaps, magnesium, calcium, omega 3, Synthroid, omeprazole, Eliquis, Coreg, multivitamin, Florinef, vitamin D and Creon. PQRS: 1. She has diffuse osteoarthritis involving multiple joints. Denies any rheumatoid arthritis. 2. Height is 5 feet 3 inches, weight is 133, BMI is 20. 3. Vital signs: 153/90, pulse is 84, respirations 18, oxygen sat is 97. Pain score is 8/10. Denies dizziness, does not need help walking or standing, has not fallen in the last 3 months. 4. The patient is on Eliquis. She does not take medicine for hypertension. [address] [address] PAIN MANAGEMENT CONSULTATION Name: JAVIER GRIFFIN Room #: PEMA Posada#: [id number] Admission: 12/23/19 Attend Phys: Estee Pat Discharge: Date of : 40 Report #: [id number] Her opioid therapy is greater than 6 weeks; therefore, she has an opioid signed contract on the chart. Risk assessment tool is low. Functional assessment is 16/70. 5. Recreational drug use, she denies. She is not a smoker and does not drink alcohol. According to the prescription monitoring system, the patient is filling appropriately for her medications, filling in a timely fashion. According to the CDC guidelines, her morphine milliequivalent per day is 30 MME or less. We will check a random drug screen on this lady in the next appointment. PHYSICAL EXAMINATION: GENERAL: This is alert and orientated, very pleasant, slightly anxious 79-year-old female who appears her stated age, placing her current pain score at 8/10. HEENT: Normocephalic, atraumatic. Extraocular eye muscles are intact. Mucous membranes are moist. NECK: She has myofascial pain along the spinal processes of her neck with no radiculopathy. They are tender to the touch. MUSCULOSKELETAL: She has significant scoliosis. She has tenderness in her low back that radiates to her bilateral hips today. Her hips have tenderness at various pressure points. Lower extremity strength judged to be 5/5 in all major muscle groups. We reviewed the fact that opiate medications are being used to provide analgesia adequate to support activities of daily living, not attempting to achieve a specific pain score on the 0-10 Visual Analog Scale. The current opiate medications are providing sufficient analgesia to allow the patient to participate in activities of daily living. The patient is not exhibiting any aberrant behavior suggestive of drug diversion. The patient is not having any adverse reactions to medications. The patient is not suffering from daytime somnolence or mental acuity changes. The patient is managing opiate-induced constipation with appropriate uouh-sdk-eacpoqn agents and dietary considerations. The patient was counseled on concern for caution with operating a motor vehicle while using opiate medications. PLAN: 1. We discussed treatment options with the patient today. The patient is wondering if she is able to decrease her Xanax and stop taking that medicine. I explained to the patient that she needs to decrease that medicine slowly. I instructed her to take half a tablet at night for about 2 weeks, then take a quarter of a pill or every other day for several weeks and then try to continue to wean from there. The patient verbalizes understanding. I explained to her that she may need to take it more slowly than I have planned for her and explained to the patient that if she needs to continue, she is on a very low dose and not to let the pharmacy words bother her. We discussed to [facility] [address] [place] [address] PAIN MANAGEMENT CONSULTATION Name: JAVIER GRIFFIN Room #: REG CLAdeline Posada#: [id number] Admission: 12/23/19 Attend Phys: Estee Pat Discharge: Date of : 40 Report #: [id number] opioid/benzodiazepene risks. 2. We will refill her tramadol 50 mg, #120 with 2 refills, her hydrocodone 5/325, #30 with no refills and her alprazolam 0.25, #30 with 2 additional refills to her [facility] electronically done by Dr. Femi Ramirez. 3. Dr. Femi Ramirez collaborated care today. <ELECTRONICALLY SIGNED> By: Estee Pat 12/24/19 0907 1540 1612 Estee Pat /nt
== END ==
LOC: PAIN 06:50
DX: G89.29 Other chronic pain (principal); M19.90 Unspecified osteoarthritis, unspecified site; M79.18 Myalgia, other site; Z88.0 Allergy status to penicillin; Z88.2 Allergy status to sulfonamides; Z88.8 Allergy status to other drugs, medicaments and biological substances; Z68.20 Body mass index [BMI] 20.0-20.9, adult

== ENCOUNTER → 2020-02-17 | Outpatient (CLI) | payer OTHER, BC ==
[~2020-02-17] VITALS: Ht 160 cm; Wt 59.1 kg
[~2020-02-17] MED LIST changes: +SLEEP AID50 MG PO
[2020-02-17 13:29] VITALS: BP 134/75
--- NOTE | 2020-02-17 13:37 | NUR ---
Pain Clinic Assessment: 1. History of Osteoarthritis: ANKLES KNEES HIPS SPINE FINGERS History of Rheumatoid Arthritis: NONE 2. Height: 5 ft. 3 in. 160.0 cm. Weight: 130.4 lb. oz. 59.149 kg. Patient's BMI: 23.1 3. Vital Signs: BP: 134/75 Pulse: 85 Resp: 16 Temp: 02 Sat: 16 ECG Mon: 4. Pain Intensity: 7 5. Fall Risk: Dizziness: N Needs help standing or walking: N Fallen in the last 3 months: N Fall risk comments: 6. Patient on Blood Thinner: BALA 7. History of Hypertension: N 8. Opioid Therapy greater than 6 weeks: N Opiate Contract Signed: 9. Risk Assessment Tool Provided: 0-low riSK 10. Functional Assessment Tool: 11. Recreational Drug Use: Never Drug Type: Tobacco Use: Never Smoker Tobacco Type: Amount or Packs/day: How Many Years: Alcohol Use: No Frequency: Quant:
--- NOTE | 2020-02-18 11:22 | HPC ---
[facility] [address] [address] PAIN MANAGEMENT CONSULTATION Name: JAVIER GRIFFIN Room #: REG ANDRIAAdeline Posada#: [id number] Admission: 02/17/20 Attend Phys: Estee Pat Discharge: Date of : 40 Report #: [id number] THIS REPORT FOR: cc: Dalila Harris Pamela D. DO Hocker,Estee IYER ~ CC: Femi Ramirez MD DATE OF SERVICE: 02/17/2020 CHIEF COMPLAINT: Chronic back pain, osteoarthritis. HISTORY OF PRESENT ILLNESS: This is a very pleasant 79-year-old female who returns to the pain clinic with her son today for medications. Today, she is slightly confused throughout some of her conversation. She is stating that her pharmacy will not fill her prescriptions and told her that she needed to come see us. She is also reporting today that she recently filled some thyroid medication that was very expensive and she does not believe it is the correct medicine. She does report that she continues to take her tramadol on a scheduled basis, taking 50 mg 4 times a day and her alprazolam one time a day and occasional hydrocodone as she needs to for breakthrough pain medicine. Today, she is reporting her pain is an average score of 7/10, mostly in her lower back and her neck. She states that she also has joint pain that is quite generalized, it is worse with weather changes. She said her pain is also worse with walking. It is a deep aching pain. She believes that overall her medications are very beneficial in controlling her. She denies problems with constipation or daytime sleepiness, though she does appear slightly depressed and down today. The patient also is reporting to me that she feels her skin is quite flaky over her legs and back. It does itch at times with no redness. She has taken some Benadryl for the itching and uses lotion, but she has not sought medical care from her primary care doctor. ALLERGIES: PENICILLIN, SULFA, CLARITHROMYCIN. CURRENT LIST OF MEDICATIONS: Tramadol 50 mg q.i.d., hydrocodone 5/325 p.r.n., alprazolam 0.25 at bedtime, digoxin, Lasix, Senokot, biotin, vitamin C, B complex, magnesium, glucosamine chondroitin, calcium, Aspercreme, omega 3, Synthroid 75 mcg, Eliquis, multivitamin, Florinef, vitamin D, and Creon. PATIENT'S PQRS: 1. She has diffuse osteoarthritis in her ankles, knees, hips, spine and hands. Denies any rheumatoid arthritis. 2. Height is 5 feet 3 inches, weight is 130, BMI is 23. 3. Vital signs: 134/75, pulse is 85, respirations 16, oxygen sat [place] 16. [place] [address] PAIN MANAGEMENT CONSULTATION Name: JAVIER GRIFFIN Room #: REG [facility] Albino#: [id number] Admission: 02/17/20 Attend Phys: Estee Pat Discharge: Date of : 40 Report #: [id number] 4. Pain score 7/10. 5. Denies dizziness, does not need help walking or standing, has not fallen in the last 3 months. 6. The patient is on Eliquis and does take medicine for hypertension. 7. Opioid therapy is greater than 6 weeks. Her risk assessment tool is low. Functional assessment is 16/70. 8. Recreational drug use, she denies. She is not a smoker and does not drink alcohol. According to the prescription monitoring system, she has not filled any of our prescriptions from 12/12/2018. She is filling her medicines appropriately every month and is due today to fill these medicines. Her morphine mEq is 20 MME per day. We did speak with the pharmacist and all of her 12/22 appointment prescriptions are still at the pharmacy on hold, waiting to be filled. The patient reported the pharmacy told her she had no prescriptions. We will collect a random drug screen on this patient today. PHYSICAL EXAMINATION: GENERAL: This is alert and orientated, slightly confused at times throughout our visit today, 79-year-old female. She has a flat affect, rating her pain score today at 7/10. HEENT: Normocephalic, atraumatic. Extraocular eye muscles are intact. She is wearing a mask. She has tenderness in her neck with no radiculopathy. MUSCULOSKELETAL: She has significant scoliosis and tenderness in her lumbar region that radiates into her bilateral hips. Her lower extremity strength judged to be 5/5 in all major muscle groups. The patient has a slight dryness to her skin in her lower extremities. We reviewed the fact that opiate medications are being used to provide analgesia adequate to support activities of daily living, not attempting to achieve a specific pain score on the 0-10 Visual Analog Scale. The current opiate medications are providing sufficient analgesia to allow the patient to participate in activities of daily living. The patient is not exhibiting any aberrant behavior suggestive of drug diversion. The patient is not having any adverse reactions to medications. The patient is not suffering from daytime somnolence or mental acuity changes. The patient is managing opiate-induced constipation with appropriate holz-htw-hnlylwt agents and dietary considerations. The patient was counseled on concern for caution with operating a motor vehicle while using opiate medications. A physical exam was performed and the patient's functional status was evaluated. All patients with back pain were advised against the bed rest greater than 4 days and were advised to return to normal activities. Pain score assessment was noted and the treatment plan was reviewed with the patient. All current medications, both prescribed and OTC were reviewed and reconciled on the electronic medical record. Tobacco screening was accomplished and smoking [facility] [address] [place] [address] PAIN MANAGEMENT CONSULTATION Name: JAVIER GRIFFIN Mirna Room #: REG KAREN Posada#: [id number] Admission: 02/17/20 Attend Phys: Estee Pat Discharge: Date of : 40 Report #: [id number] cessation was advised when indicated. BMI was noted and diet/exercise modification was recommended for all patients following outside normal parameters. I reviewed with the patient today their responsibilities to safeguard prescription medications, reviewed their responsibility to utilize medications only as prescribed by the physician. They are to seek and receive pain medications only from 1 physician group ( [facility]). They are to use 1 pharmacy and keep the clinic informed if they change pharmacies. Their responsibilities include making followup visits in a timely fashion and to avoid abrupt discontinuation of medication usage. Their responsibilities further include bringing their medications (bottles from the pharmacy with residual pills) to the visit for possible confirmation of pill counts and the patient understands it is their responsibility to submit to random drug screens to ensure both that the medications prescribed are present, and that no other controlled substances are present. All prescriptions provided today were generated electronically. PLAN: 1. We discussed treatment options with the patient today. The patient does state that she takes her medications on a regular basis, taking tramadol 4 times a day and half of a hydrocodone in the morning and half later in the day, taking these appropriately according to how we prescribe them, but according to the prescription monitoring system, she filled in January an July prescription. Otherwise, filling her medications in a timely fashion from October, but no scripts from December have been filled. I did take the liberty of calling her [facility] in [place]. They did verify that they have prescriptions from 12/23/2019 on file that they are holding for all the appropriate medicines we prescribed then. Therefore, today, we will not prescribe any new medications, but allow the pharmacy to fill those prescriptions. 2. I did speak with the patient at length regarding her thyroid medication and her complaints of itchy dry skin. I did encourage her to see Dr. Harris and make an appointment to possibly have her thyroid level checked. The patient also reports that she was given a different thyroid medication at the pharmacy. I encouraged her to take that back and to discuss this with her pharmacist as well. The patient and son verbalized understanding. 3. We did collect urine for a random drug screen on this patient today. 4. The patient is seen today in collaboration with Dr. Ramirez. The patient also given names of primary care doctors within our facility. <ELECTRONICALLY SIGNED> By: Estee Pat 02/18/20 1122 1503 1824 Estee Pat /nt
== END ==
LOC: PAIN 06:56
DX: M54.5 Low back pain (principal); M19.90 Unspecified osteoarthritis, unspecified site

== ENCOUNTER → 2020-05-11 | Outpatient (CLI) | payer OTHER, BC ==
[~2020-05-11] MED LIST changes: +TOPROL XL25 MG PO
--- NOTE | 2020-05-11 10:28 | HPC ---
[facility] [place] [address] PAIN MANAGEMENT CONSULTATION Name: JAVIER GRIFFIN Room #: REG KAREN Mary.#: [id number] Admission: 05/11/20 Attend Phys: Estee Pat Discharge: Date of : 40 Report #: [id number] THIS REPORT FOR: cc: Dalila Harris Pamela D. DO Hocker,Estee IYER ~ CC: Femi Ramirez MD DATE OF SERVICE: 05/11/2020 CHIEF COMPLAINT: Chronic back pain, osteoarthritis. This is a telemedicine appointment that the patient has consented to due to COVID exposure. She is at home, isolating and has agreed to this telemedicine appointment due to those issues. HISTORY OF PRESENT ILLNESS: This is a very pleasant 79-year-old female who I am speaking with via the telephone today for a telemedicine appointment. Today, the patient is rating her pain score at 5/10, mostly in her lower back, knees and hips. She feels that her arthritis is getting worse in her hips, especially when she walks and is active. She believes that lying down and sitting are her most beneficial positions. She reports an aching pain all over and dull. She reports to me that she has been not sleeping as well as she had in the past. Her primary doctor did start a new medication and feels that has been beneficial. She does continue to take her alprazolam at bedtime as well. She feels that her tramadol and occasional hydrocodone that she does not take on a daily basis has been beneficial and would like refills today. The patient denies any problems with constipation or overmedicated feeling. She does eat plenty of fruits and vegetables and has stopped taking MiraLax and now takes Senokot on a fairly consistent basis and finds these beneficial as well as plenty of liquids. ALLERGIES: PENICILLIN, SULFA, CLARITHROMYCIN. CURRENT LIST OF MEDICATIONS: Tramadol 50 mg 4 times a day, hydrocodone 5/325 p.r.n., alprazolam 0.25 at bedtime, digoxin, Lasix, Senokot, biotin, vitamin C, B complex, magnesium, glucosamine chondroitin, calcium, omega 3, Synthroid 75 mEq, Eliquis, multivitamin, Florinef, vitamin D, Creon and Toprol. PQRS: 1. She has diffuse osteoarthritis in her ankles, knees, hips and spine. Denies any rheumatoid arthritis. 2. Height, weight and vital signs were deferred due to a telemedicine appointment. Pain score today is 5/10. The patient denies dizziness, does not need help walking or standing, has not fallen in the last 3 months. The patient [address] [address] PAIN MANAGEMENT CONSULTATION Name: JAVIER GRIFFIN Mirna Room #: REG KAREN Posada#: [id number] Admission: 05/11/20 Attend Phys: Estee Pat Discharge: Date of : 40 Report #: [id number] is on Eliquis as well as medicines for blood pressure. Her opioid therapy is greater than 6 weeks; therefore, an opioid signed contract is on the chart. Her risk assessment tool is low. Functional assessment . 3. Recreational drug use, she denies. She is not a smoker and does not drink alcohol. According to the prescription monitoring system, the patient is filling appropriately in a timely fashion. She is due to fill later this week for her medications. Her morphine milliequivalent is 20 MME per day. We did check a random drug screen at her last visit and it is appropriate for all her medications. PHYSICAL EXAMINATION: GENERAL: Physical examination is the review of systems today due to a telemedicine appointment. This is alert and orientated, answering questions appropriately. She does have a flat affect, rating her pain score at 5/10. MUSCULOSKELETAL: She has significant scoliosis and pain and tenderness in her lumbar region, radiates into her bilateral hips. Pain is increased with ambulation. We reviewed the fact that opiate medications are being used to provide analgesia adequate to support activities of daily living, not attempting to achieve a specific pain score on the 0-10 Visual Analog Scale. The current opiate medications are providing sufficient analgesia to allow the patient to participate in activities of daily living. The patient is not exhibiting any aberrant behavior suggestive of drug diversion. The patient is not having any adverse reactions to medications. The patient is not suffering from daytime somnolence or mental acuity changes. The patient is managing opiate-induced constipation with appropriate qjsz-psi-pracckg agents and dietary considerations. The patient was counseled on concern for caution with operating a motor vehicle while using opiate medications. PLAN: 1. We discussed treatment options with the patient today. The patient finds her medications beneficial. Taking hydrocodone on a very as needed basis 30 tablets typically last her 3 months. We will have Dr. Femi Ramirez send her medications electronically for hydrocodone 5/325, #30; tramadol 50 mg q.i.d., #120 with 2 additional refills and alprazolam 0.25 mg 1 at bedtime, #30 with 2 additional refills. 2. I continued to remind the patient of the benzodiazepine opioid interaction and to be mindful of these 2 medications at bedtime. The patient has not had issues with them, but we do want to educate her again. [address] [address] PAIN MANAGEMENT CONSULTATION Name: JAVIER GRIFFIN Room #: REG [facility] Joshua.#: [id number] Admission: 05/11/20 Attend Phys: Estee Pat Discharge: Date of : 40 Report #: [id number] 3. The patient spoken with via the telephone in collaboration with Dr. Femi Ramirez for this Telemed appointment. <ELECTRONICALLY SIGNED> By: Estee Pat 05/11/20 1028 0924 0939 Estee Pat /nt
== END ==
LOC: TELEPC 06:45 → PAIN 09:28 → TELEPC 09:40
PROVIDERS: ATTEND Clinical Nurse Specialist Adult Health
DX: M54.9 Dorsalgia, unspecified (principal); G89.29 Other chronic pain; M19.90 Unspecified osteoarthritis, unspecified site; Z88.8 Allergy status to other drugs, medicaments and biological substances; Z79.899 Other long term (current) drug therapy

== ENCOUNTER → 2020-08-24 | Outpatient (CLI) | payer OTHER, BC ==
[~2020-08-24] VITALS: Ht 160 cm; Wt 62.0 kg
[2020-08-24 12:39] VITALS: BP 136/78
--- NOTE | 2020-08-25 13:22 | HPC ---
[facility] [place] [address] PAIN MANAGEMENT CONSULTATION Name: JAVIER GRIFFIN Room #: REG KAREN Albino#: [id number] Admission: 08/24/20 Attend Phys: Estee Pat Discharge: Date of : 40 Report #: [id number] THIS REPORT FOR: cc: Dalila Harris Pamela D. DO Hocker, Amanda CNS ~ CC: Estee Ramirez MD DATE OF SERVICE: 08/24/2020 CHIEF COMPLAINT: Chronic back pain and osteoarthritis. HISTORY OF PRESENT ILLNESS: This is a very pleasant 79-year-old female who returns to the pain clinic today for refill of her medications. Today, she is reporting her pain as a 7/10, most problematic in her low back and neck, occasionally in her hands. She does have osteoarthritis of multiple joints and this is painful with the weather changes. Today, she is reporting a pain score of 7/10, which she considers a deep ache, again weather changes do increase her pain as well as activity and walking. She feels though overall the medications are beneficial, but is requesting to have another 30 pills of hydrocodone to last her through the 3 months. The patient states typically the wintertime, she does have increasing pain and since she will not be back until November to see if she is requesting this increase today. The patient reports that she has been out of her alprazolam and hydrocodone for several days. She thought that she would like to stop the alprazolam, which she does take for sleep. She has found that the last few days that she was having significant insomnia, taking 10 mg of melatonin was not beneficial and she has not slept well for days. ALLERGIES: PENICILLIN, SULFA, CLARITHROMYCIN. CURRENT LIST OF MEDICATIONS: Tramadol, hydrocodone, alprazolam, Lasix, stool softeners, biotin, ascorbic acid, B complex, magnesium, glucosamine chondroitin, calcium, omega 3, levothyroxine, Eliquis, carvedilol, multivitamin, vitamin D, and Creon. PQRS: 1. She has significant diffuse osteoarthritis in her ankles, knees, hips, spines, fingers. Denies any rheumatoid arthritis. 2. Height is 5 feet 3 inches, weight is 136, BMI is 24. 3. Vital signs 136/78, pulse is 89, respirations 18, oxygen sat is 97%. 4. Pain score is 7/10. 5. Denies dizziness, does not need help walking or standing, has not fallen in the last 3 months. 6. The patient is on Eliquis as well as medications for hypertension. [address] [address] PAIN MANAGEMENT CONSULTATION Name: JAVIER GRIFFIN Mirna Room #: REG [facility] Albino#: [id number] Admission: 08/24/20 Attend Phys: Estee Pat Discharge: Date of : 40 Report #: [id number] 7. Opioid therapy is greater than 6 weeks; therefore, an opioid signed contract is on the chart. Risk assessment is low. Functional assessment . 8. Recreational drug use, she denies. She is not a smoker and does not drink alcohol. According to the prescription monitoring system, the patient is on a benzodiazepine and an opioid, but very low dose of both of these medications and is followed closely. Her morphine mEq is 25 MME per day. PHYSICAL EXAMINATION: GENERAL: This is alert and orientated 79-year-old female who has a flat affect, who is well-developed, well-nourished, rating her pain score today at 7/10. HEENT: Normocephalic, atraumatic. Extraocular eye muscles are intact. She is wearing a mask. MUSCULOSKELETAL: The patient has significant scoliosis with tenderness in her lumbar region that does radiate into her legs. Lower extremity strength judged to be 5/5 in all major muscle groups. Her skin is dry and flaky in her upper and lower extremities today. Hands are tender at various nodules from her arthritis. We reviewed the fact that opiate medications are being used to provide analgesia adequate to support activities of daily living, not attempting to achieve a specific pain score on the 0-10 Visual Analog Scale. The current opiate medications are providing sufficient analgesia to allow the patient to participate in activities of daily living. The patient is not exhibiting any aberrant behavior suggestive of drug diversion. The patient is not having any adverse reactions to medications. The patient is not suffering from daytime somnolence or mental acuity changes. The patient is managing opiate-induced constipation with appropriate mgps-uwq-wrvygcb agents and dietary considerations. The patient was counseled on concern for caution with operating a motor vehicle while using opiate medications. A physical exam was performed and the patient's functional status was evaluated. All patients with back pain were advised against the bed rest greater than 4 days and were advised to return to normal activities. Pain score assessment was noted and the treatment plan was reviewed with the patient. All current medications, both prescribed and OTC were reviewed and reconciled on the electronic medical record. Tobacco screening was accomplished and smoking cessation was advised when indicated. BMI was noted and diet/exercise modification was recommended for all patients following outside normal parameters. I reviewed with the patient today their responsibilities to safeguard prescription medications, reviewed their responsibility to utilize medications only as prescribed by the physician. They are to seek and receive pain medications only from 1 physician group ( [facility]). They are to use [facility] [address] [place] [address] PAIN MANAGEMENT CONSULTATION Name: JAVIER GRIFFIN Room #: REG KAREN Posada#: [id number] Admission: 08/24/20 Attend Phys: Estee Pat Discharge: Date of : 40 Report #: [id number] pharmacy and keep the clinic informed if they change pharmacies. Their responsibilities include making followup visits in a timely fashion and to avoid abrupt discontinuation of medication usage. Their responsibilities further include bringing their medications (bottles from the pharmacy with residual pills) to the visit for possible confirmation of pill counts and the patient understands it is their responsibility to submit to random drug screens to ensure both that the medications prescribed are present, and that no other controlled substances are present. All prescriptions provided today were generated electronically. IMPRESSION: 1. Chronic osteoarthritis. 2. Myofascial pain. 3. History of anxiety and depression. 4. History of congestive heart failure, on Eliquis due to atrial fibrillation. 5. Osteoporosis. 6. Management of high risk medications under terms of written opioid agreement. PLAN: 1. We discussed treatment options with the patient today. The patient is complaining of increasing dryness of her skin. I did explain that due to her thyroid issues as well as becoming older or skin does get dryer and encouraged her not to take showers on a daily basis. Encouraged her to use lotion that penetrates her skin, such as coconut lotion. 2. The patient was considering stopping her benzodiazepines of Xanax that has not been able to sleep for the past few days. I encouraged her to continue trialing taking half of her 0.25 if she would like to try and wean off slowly. She is on a very low dose and has been on this dose for quite some time. Scripts will be sent electronically for 0.25, #30 with 2 refills. 3. We will continue her on her tramadol 50, #120 with 2 additional refills and enable her to take one hydrocodone sparingly for severe pain, giving her a quantity of 60 tablets for 3 months. The patient is seen today in collaboration with Dr. Femi Ramirez. <ELECTRONICALLY SIGNED> By: Estee Pat 08/25/20 1322 1439 0912 Estee Pat /nt
== END ==
LOC: PAIN 06:56
PROVIDERS: ATTEND Clinical Nurse Specialist Adult Health
DX: M54.9 Dorsalgia, unspecified (principal); G89.29 Other chronic pain; M19.90 Unspecified osteoarthritis, unspecified site; F41.8 Other specified anxiety disorders; M81.0 Age-related osteoporosis without current pathological fracture; F11.20 Opioid dependence, uncomplicated; Z88.8 Allergy status to other drugs, medicaments and biological substances; Z79.899 Other long term (current) drug therapy

== ENCOUNTER → 2020-12-07 | Outpatient (CLI) | payer OTHER, BC ==
[~2020-12-07] VITALS: Ht 160 cm; Wt 61.5 kg
[2020-12-07 13:34] VITALS: BP 125/77
--- NOTE | 2020-12-07 13:50 | NUR ---
Pain Clinic Assessment: 1. History of Osteoarthritis: ANKLES KNEES HIPS SPINE FINGERS History of Rheumatoid Arthritis: NONE 2. Height: 5 ft. 3 in. 160.0 cm. Weight: 135.6 lb. oz. 61.508 kg. Patient's BMI: 24.0 3. Vital Signs: BP: 125/77 Pulse: 81 Resp: 14 Temp: 02 Sat: 100 ECG Mon: 4. Pain Intensity: 6 5. Fall Risk: Dizziness: N Needs help standing or walking: N Fallen in the last 3 months: N Fall risk comments: 6. Patient on Blood Thinner: BALA 7. History of Hypertension: N 8. Opioid Therapy greater than 6 weeks: Y Opiate Contract Signed: 11/13/17 9. Risk Assessment Tool Provided: 0-low riSK 10. Functional Assessment Tool: 11. Recreational Drug Use: Never Drug Type: Tobacco Use: Never Smoker Tobacco Type: Amount or Packs/day: How Many Years: Alcohol Use: No Frequency: Quant:
--- NOTE | 2020-12-08 08:39 | HPC ---
[facility] [address] [address] PAIN MANAGEMENT CONSULTATION Name: JAVIER GRIFFIN Room #: REG Adeline Posada#: [id number] Admission: 12/07/20 Attend Phys: Estee Pat Discharge: Date of : 40 Report #: [id number] THIS REPORT FOR: cc: Dalila Harris Pamela D. DO Hocker,Estee IYER ~ DATE OF SERVICE: 12/07/2020 CHIEF COMPLAINT: Chronic back pain, osteoarthritis. HISTORY OF PRESENT ILLNESS: This is a pleasant, depressed 80-year-old female who returns today to the pain clinic for a refill of her opioid medications. Today, she is reporting that she has had a long winter. She states her pain has been worse due to the cold. She reports a deep bone pain. She is also feeling depressed since she has been stuck at home, not socializing with people and also due to the cold, she feels like she has been at home, so therefore that has made her depression worse, especially on cloudy days. Today, she feels slightly better since she is out and the sun is shining. The patient was unable to come to an appointment in November due to bad road conditions; therefore, she did make her medications last and was unaware that she had a tramadol prescription still at the pharmacy. She has not gone through withdrawal since she was not able to take her hydrocodone. Today, she reports her pain score as 6/10 in her low back, wrist, hips and other joints. It is a deep ache, constant discomfort, worse with walking and weather changes. Overall, she believes her heating pad as well as taking her medications are beneficial. She does complain of some constipation issues and takes a stool softener every day. The patient does report trying to exercise. She has been utilizing weights at home. She has a paddle contraction that she was utilizing until she developed a sore on her heel. She reports she will start this again. She is considering a treadmill since she is unable to walk outside. ALLERGIES: PENICILLIN, SULFA, AND CLARITHROMYCIN. CURRENT LIST OF MEDICATIONS: Tramadol 50 mg q.i.d., hydrocodone 5/325 half a tablet b.i.d., alprazolam, Lasix, Senokot, biotin, ascorbic acid, vitamin B complex, magnesium, glucosamine chondroitin, calcium, Aspercreme, omega 3, Synthroid, Eliquis, Coreg, multivitamin, vitamin D, Creon. PQRS: 1. She has osteoarthritis affecting multiple joints. Denies rheumatoid arthritis. 2. Height is 5 feet 3 inches, weight is 135, BMI is 24. 3. Vital signs 125/77, pulse is 81, respirations 14, and oxygen sat is 100, pain score is 6/10. Fall Risk: Denies dizziness, does not need help walking or [address] [address] PAIN MANAGEMENT CONSULTATION Name: JAVIER GRIFFIN Room #: REG [facility]#: [id number] Admission: 12/07/20 Attend Phys: Estee Pat Discharge: Date of : 40 Report #: [id number] standing, has not fallen in the last 3 months. The patient is on Eliquis, but does not take medicine for hypertension. Her opioid therapy is greater than 6 weeks; therefore, an opioid signed contract is on the chart. Risk assessment is low. Functional assessment . 4. Recreational drug use, she denies. She is not a smoker and does not drink alcohol. According to the prescription monitoring system, she is due to fill her medications today. She does take a benzodiazepine with her low dose opioids, but is stable on both these medications. There is a urine drug screen on the chart that is appropriate for her medications. PHYSICAL EXAMINATION: GENERAL: This is alert and orientated, depressed 80-year-old female who appears her stated age. She is well-developed, well-nourished, well-hydrated. She does have a flat affect. Her son is present with her today, rating her pain score of 6/10. HEENT: Normocephalic, atraumatic. Extraocular eye muscles are intact. She is wearing a mask. MUSCULOSKELETAL: She has kyphosis that has scoliosis present in her spine. She has tenderness in her lumbar region that radiates into her legs bilaterally. She has tenderness in multiple joints today. Her upper and lower extremity strengths are symmetrical. The lower extremity slightly diminished. We reviewed the fact that opiate medications are being used to provide analgesia adequate to support activities of daily living, not attempting to achieve a specific pain score on the 0-10 Visual Analog Scale. The current opiate medications are providing sufficient analgesia to allow the patient to participate in activities of daily living. The patient is not exhibiting any aberrant behavior suggestive of drug diversion. The patient is not having any adverse reactions to medications. The patient is not suffering from daytime somnolence or mental acuity changes. The patient is managing opiate-induced constipation with appropriate ogan-mbe-vxiuwdm agents and dietary considerations. The patient was counseled on concern for caution with operating a motor vehicle while using opiate medications. A physical exam was performed and the patient's functional status was evaluated. All patients with back pain were advised against the bed rest greater than 4 days and were advised to return to normal activities. Pain score assessment was noted and the treatment plan was reviewed with the patient. All current medications, both prescribed and OTC were reviewed and reconciled on the electronic medical record. Tobacco screening was accomplished and smoking cessation was advised when indicated. BMI was noted and diet/exercise modification was recommended for all patients following outside normal parameters. [facility] [address] [place] [address] PAIN MANAGEMENT CONSULTATION Name: JAVIER GRIFFIN Room #: REG KAREN Hernandez.#: [id number] Admission: 12/07/20 Attend Phys: Estee Pat Discharge: Date of : 40 Report #: [id number] I reviewed with the patient today their responsibilities to safeguard prescription medications, reviewed their responsibility to utilize medications only as prescribed by the physician. They are to seek and receive pain medications only from 1 physician group ( [facility]). They are to use 1 pharmacy and keep the clinic informed if they change pharmacies. Their responsibilities include making followup visits in a timely fashion and to avoid abrupt discontinuation of medication usage. Their responsibilities further include bringing their medications (bottles from the pharmacy with residual pills) to the visit for possible confirmation of pill counts and the patient understands it is their responsibility to submit to random drug screens to ensure both that the medications prescribed are present, and that no other controlled substances are present. All prescriptions provided today were generated electronically. IMPRESSION: 1. Chronic osteoarthritis. 2. Myofascial pain. 3. History of anxiety and depression. 4. History of congestive heart failure, on Eliquis. 5. Osteoporosis. 6. Management of high risk medications under terms of written opioid agreement. PLAN: 1. We discussed treatment options with the patient today. The patient finds her medications beneficial, though she does report significant pain during that very cold weather we had recently that did increase her pain deep in her bones. During that time, she was very inactive due to the fact that she hurts so much. She did utilize heat. I encouraged her to use the heat or electric blanket as well and I encouraged her that spring is coming, so hopefully, her pain will decrease. Today, we will send scripts electronically for her tramadol, hydrocodone and alprazolam with no changes. She will have enough for 3-month supply. 2. We did discuss the patient's activity. She is trying to utilize weights. She is wondering about a treadmill. I explained I worry about her safety when walking on a treadmill on the various speeds. She does have some type of pedal device she has been utilizing. I also encouraged a recumbent bike, but forms of activity to keep her active, which keeps her joints moving are beneficial. 3. We did discuss the COVID vaccine. The patient is not on the list currently unsure if she is wanting to take this vaccine, but is also tired of stay at home, wearing a mask. We did give her information of how to set up appointment on mind if she chooses to. 4. The patient is seen today in collaboration with Dr. Femi Ramirez. The [address] [address] PAIN MANAGEMENT CONSULTATION Name: JAVIER GRIFFIN Room #: REG KAREN Posada#: [id number] Admission: 12/07/20 Attend Phys: Estee Pat Discharge: Date of : 40 Report #: [id number] patient will return in 3 months. Hopefully, her mood will be better after it is spring time. At this time, she did deny any medications for depression. <ELECTRONICALLY SIGNED> By: Estee Pat 12/08/20 [id number] Estee Pat /nt
== END ==
LOC: PAIN 11-19 06:55
PROVIDERS: ATTEND Clinical Nurse Specialist Adult Health
DX: M54.9 Dorsalgia, unspecified (principal); M19.90 Unspecified osteoarthritis, unspecified site; G89.29 Other chronic pain; M79.10 Myalgia, unspecified site; M81.0 Age-related osteoporosis without current pathological fracture; F41.8 Other specified anxiety disorders; I50.9 Heart failure, unspecified; F11.20 Opioid dependence, uncomplicated; Z88.8 Allergy status to other drugs, medicaments and biological substances; Z79.899 Other long term (current) drug therapy

== ENCOUNTER → 2021-03-11 | Outpatient (CLI) | payer OTHER, BC ==
[~2021-03-11] VITALS: Ht 160 cm; Wt 61.1 kg
[~2021-03-11] MED LIST changes: +NARCAN4 MG NARES
[2021-03-11 13:08] VITALS: BP 148/63
--- NOTE | 2021-03-11 13:13 | NUR ---
Pain Clinic Assessment: 1. History of Osteoarthritis: ANKLES KNEES HIPS SPINE FINGERS History of Rheumatoid Arthritis: NONE 2. Height: 5 ft. 3 in. 160.0 cm. Weight: 134.8 lb. oz. 61.145 kg. Patient's BMI: 23.9 3. Vital Signs: BP: 148/63 Pulse: 102 Resp: 16 Temp: 02 Sat: 98 ECG Mon: 4. Pain Intensity: 6 5. Fall Risk: Dizziness: N Needs help standing or walking: N Fallen in the last 3 months: N Fall risk comments: 6. Patient on Blood Thinner: BALA 7. History of Hypertension: N 8. Opioid Therapy greater than 6 weeks: Y Opiate Contract Signed: 11/13/17 9. Risk Assessment Tool Provided: 0-low riSK 10. Functional Assessment Tool: 11. Recreational Drug Use: Never Drug Type: Tobacco Use: Never Smoker Tobacco Type: Amount or Packs/day: How Many Years: Alcohol Use: No Frequency: Quant:
== END ==
LOC: PAIN 12:09
PROVIDERS: ATTEND Clinical Nurse Specialist Adult Health
DX: M19.90 Unspecified osteoarthritis, unspecified site (principal); G89.29 Other chronic pain; M54.5 Low back pain; M81.0 Age-related osteoporosis without current pathological fracture; I50.9 Heart failure, unspecified; I48.91 Unspecified atrial fibrillation; F41.9 Anxiety disorder, unspecified; F32.9 Major depressive disorder, single episode, unspecified; Z79.891 Long term (current) use of opiate analgesic; Z79.899 Other long term (current) drug therapy

== ENCOUNTER → 2021-06-21 | Outpatient (CLI) | payer OTHER, BC ==
[~2021-06-21] VITALS: Ht 160 cm; Wt 61.4 kg
[2021-06-21 13:02] VITALS: BP 119/74
--- NOTE | 2021-06-21 13:11 | NUR ---
Pain Clinic Assessment: 1. History of Osteoarthritis: ANKLES KNEES HIPS SPINE FINGERS History of Rheumatoid Arthritis: NONE 2. Height: 5 ft. 3 in. 160.0 cm. Weight: 135.4 lb. oz. 61.417 kg. Patient's BMI: 24.0 3. Vital Signs: BP: 119/74 Pulse: 79 Resp: 14 Temp: 02 Sat: 97 ECG Mon: 4. Pain Intensity: 6 5. Fall Risk: Dizziness: N Needs help standing or walking: N Fallen in the last 3 months: N Fall risk comments: 6. Patient on Blood Thinner: BALA 7. History of Hypertension: N 8. Opioid Therapy greater than 6 weeks: Y Opiate Contract Signed: 11/13/17 9. Risk Assessment Tool Provided: 0-low riSK 10. Functional Assessment Tool: 11. Recreational Drug Use: Never Drug Type: Tobacco Use: Never Smoker Tobacco Type: Amount or Packs/day: How Many Years: Alcohol Use: No Frequency: Quant:
== END ==
LOC: PAIN 10:26
PROVIDERS: ATTEND Anesthesiology Pain Medicine
DX: G89.29 Other chronic pain (principal); M47.816 Spondylosis without myelopathy or radiculopathy, lumbar region

== ENCOUNTER → 2021-09-20 | Outpatient (CLI) | payer OTHER, BC ==
[~2021-09-20] VITALS: Ht 160 cm; Wt 60.8 kg
[2021-09-20 12:21] VITALS: BP 111/80
--- NOTE | 2021-09-20 12:36 | NUR ---
Pain Clinic Assessment: 1. History of Osteoarthritis: ANKLES KNEES HIPS SPINE FINGERS History of Rheumatoid Arthritis: NONE 2. Height: 5 ft. 3 in. 160.0 cm. Weight: 134.0 lb. oz. 60.782 kg. Patient's BMI: 23.7 3. Vital Signs: BP: 111/80 Pulse: 86 Resp: 20 Temp: 02 Sat: 100 ECG Mon: 4. Pain Intensity: 6 5. Fall Risk: Dizziness: N Needs help standing or walking: N Fallen in the last 3 months: Y Fall risk comments: 6. Patient on Blood Thinner: CHARITOIS 7. History of Hypertension: N 8. Opioid Therapy greater than 6 weeks: Y Opiate Contract Signed: 11/13/17 9. Risk Assessment Tool Provided: 0-low riSK 10. Functional Assessment Tool: 11. Recreational Drug Use: Never Drug Type: Tobacco Use: Never Smoker Tobacco Type: Amount or Packs/day: How Many Years: Alcohol Use: No Frequency: Quant:
== END ==
LOC: PAIN 07:49
PROVIDERS: ATTEND Clinical Nurse Specialist Adult Health
DX: G89.29 Other chronic pain (principal); M47.816 Spondylosis without myelopathy or radiculopathy, lumbar region; M19.90 Unspecified osteoarthritis, unspecified site; F41.8 Other specified anxiety disorders; I48.91 Unspecified atrial fibrillation; Z88.0 Allergy status to penicillin; Z88.8 Allergy status to other drugs, medicaments and biological substances; Z79.899 Other long term (current) drug therapy